=== PATIENT | female | born 1965 | race Hispanic/Latino ===

== ENCOUNTER 2018-04-07 12:51 | Outpatient (CLI) | payer OTHER | END 2018-04-07 12:52 | disposition home or self-care (01) | LOC: BICMAMMO 12:51 | PROVIDERS: ATTEND Family Medicine | DX: Z12.31 Encounter for screening mammogram for malignant neoplasm of breast (principal); Z80.3 Family history of malignant neoplasm of breast | CPT/HCPCS: 77063; 77067 ==

== ENCOUNTER 2018-05-15 14:49 | Emergency (ER) | payer OTHER ==
[2018-05-15] MEDS ORDERED: Ketorolac Tromethamine 30 MG/ML VIAL ONE (16:17)
--- NOTE | 2018-05-15 17:16 | RAD ---
PA AND LATERAL VIEWS CHEST: 05/15/18 HISTORY: Injury, chest pain, back pain. FINDINGS: The heart size is normal. The lungs are expanded without focal areas of consolidation, pneumothorax o r pleural effusions. Minimal degenerative changes are seen in the spine. IMPRESSION: No radiographic evidence of acute cardiopulmonary process. POS: [facility]
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
== END 2018-05-15 16:53 | disposition home or self-care (01) ==
LOC: ERS 14:49
DX: S16.1XXA Strain of muscle, fascia and tendon at neck level, initial encounter (principal); F17.210 Nicotine dependence, cigarettes, uncomplicated; V43.52XA Car driver injured in collision with other type car in traffic accident, initial encounter
CPT/HCPCS: 71046; 72040; 96372; J1885

== ENCOUNTER 2019-04-13 10:38 | Outpatient (CLI) | payer OTHER ==
--- NOTE | 2019-04-13 11:22 | MMO ---
Bilateral MAMMO Bilat Screen [facility]. CLINICAL HISTORY: Patient is 53 years old and is seen for screening. The patient has the following family history of breast cancer: sister, at age 55, malignant (generic). The patient has no personal history of cancer. VIEWS: The views performed were: bilateral craniocaudal with tomosynthesis and bilateral mediolateral oblique with tomosynthesis. FILMS COMPARED: The present examination has been compared to prior imaging studies performed at [facility] on 03/21/2008, 03/27/2009, 03/22/2014 and 04/07/2018. This study has been interpreted with the assistance of computer-aided detection. MAMMOGRAM FINDINGS: There are scattered fibroglandular densities. There are stable benign appearing calcifications seen in both breasts. There are no suspicious masses, calcifications or areas of architectural distortion. There are no suspicious masses, suspicious calcifications, or new areas of architectural distortion. IMPRESSION: THERE IS NO MAMMOGRAPHIC EVIDENCE OF MALIGNANCY. A ROUTINE FOLLOW-UP MAMMOGRAM IN 1 YEAR IS RECOMMENDED. THE RESULTS OF THIS EXAM WERE SENT TO THE PATIENT. ACR BI-RADS Category 2 - Benign finding MAMMOGRAPHY NOTE: 1. A negative mammogram report should not delay a biopsy if a dominant of clinically suspicious mass is present. 2. Approximately 10% to 15% of breast cancers are not detected by mammography. 3. Adenosis and dense breasts may obscure an underlying neoplasm. Reported by: JENNA TRAVIS MD Electonically Signed: [id number]
== END 2019-04-13 10:39 | disposition home or self-care (01) ==
LOC: BICMAMMO 10:38
PROVIDERS: ATTEND Family Medicine
DX: Z12.31 Encounter for screening mammogram for malignant neoplasm of breast (principal); Z80.3 Family history of malignant neoplasm of breast
CPT/HCPCS: 77063; 77067

== ENCOUNTER 2020-04-18 08:34 | Outpatient (CLI) | payer OTHER ==
--- NOTE | 2020-04-18 10:56 | MMO ---
Bilateral MAMMO Bilat Screen [facility]. CLINICAL HISTORY: Patient is 54 years old and is seen for screening. The patient has the following family history of breast cancer: paternal aunt, at age 55, malignant (generic) and cousin female, malignant (generic). The patient has no personal history of cancer. VIEWS: The views performed were: bilateral craniocaudal with tomosynthesis and bilateral mediolateral oblique with tomosynthesis. FILMS COMPARED: The present examination has been compared to prior imaging studies performed at [facility] on 03/27/2009, 03/22/2014, 04/07/2018 and 04/13/2019. This study has been interpreted with the assistance of computer-aided detection. MAMMOGRAM FINDINGS: There are scattered fibroglandular densities. There is a mass seen in the lower-inner region of the right breast. In the left breast, there are no suspicious masses, calcifications or areas of architectural distortion. IMPRESSION: MASS IN THE RIGHT BREAST REQUIRES ADDITIONAL EVALUATION. SPOT COMPRESSION IS RECOMMENDED. AN ULTRASOUND EXAM IS RECOMMENDED. ADDITIONAL IMAGING. THE RESULTS OF THIS EXAM WERE SENT TO THE PATIENT. ACR BI-RADS Category 0 - Incomplete: Need additional imaging evaluation. [facility] will notify the patient of the need for additional imaging services. MAMMOGRAPHY NOTE: 1. A negative mammogram report should not delay a biopsy if a dominant of clinically suspicious mass is present. 2. Approximately 10% to 15% of breast cancers are not detected by mammography. 3. Adenosis and dense breasts may obscure an underlying neoplasm. Reported by: DAISY JOE MD Electonically Signed: [id number]
--- NOTE | 2020-04-18 13:42 | RAD ---
THORACIC SPINE 3 VIEWS: Date: 04/18/2020 HISTORY: Mid back pain. FINDINGS: Vertebral bodies are normal in height. Degenerative osteophytic change is seen along the course of th e spine. Pedicles appear intact. IMPRESSION: Mild arthritic changes of the spine. POS: [facility]
== END 2020-04-18 08:35 | disposition home or self-care (01) ==
LOC: BICMAMMO 08:34
PROVIDERS: ATTEND Family Medicine
DX: Z12.31 Encounter for screening mammogram for malignant neoplasm of breast (principal); M54.9 Dorsalgia, unspecified; M47.814 Spondylosis without myelopathy or radiculopathy, thoracic region; N63.14 Unspecified lump in the right breast, lower inner quadrant; Z80.3 Family history of malignant neoplasm of breast
CPT/HCPCS: 72072; 77063; 77067

== ENCOUNTER 2020-04-25 12:59 | Outpatient (CLI) | payer OTHER ==
--- NOTE | 2020-04-25 14:08 | MMO ---
Right Breast MAMMO Unilat Diag [facility] RT+RIKY. CLINICAL HISTORY: Patient is 54 years old and is seen for additional evaluation requested from prior study. The patient has the following family history of breast cancer: paternal aunt, at age 55, malignant (generic) and cousin female, malignant (generic). The patient has no personal history of cancer. VIEWS: The views performed were: right craniocaudal spot compression with tomosynthesis; right mediolateral oblique spot compression with tomosynthesis; and right mediolateral with tomosynthesis. FILMS COMPARED: The present examination has been compared to prior imaging studies performed at [facility] on 04/07/2018, 04/13/2019, 04/18/2020 and 04/25/2020. This study has been interpreted with the assistance of computer-aided detection. MAMMOGRAM FINDINGS: There are scattered fibroglandular densities. There is an oval mass measuring 3 x 5 x 6 mm with circumscribed margins seen in the right breast at 3 o'clock. Complicated cyst or lymph node IMPRESSION: MASS IN THE RIGHT BREAST IS PROBABLY BENIGN. FOLLOW-UP IN 6 MONTHS IS RECOMMENDED. THE RESULTS OF THIS EXAM WERE SENT TO THE PATIENT. ACR BI-RADS Category 3 - Probably benign finding - short interval follow-up suggested. [facility] will notify the patient of the need for additional imaging services. MAMMOGRAPHY NOTE: 1. A negative mammogram report should not delay a biopsy if a dominant of clinically suspicious mass is present. 2. Approximately 10% to 15% of breast cancers are not detected by mammography. 3. Adenosis and dense breasts may obscure an underlying neoplasm. Reported by: KAYLYN GLASGOW MD Electonically Signed: [id number]
--- NOTE | 2020-04-25 14:13 | ULT ---
Exam: Right breast ultrasound Limited: HISTORY: Nodular density in the inner aspect right breast on mammogram for further assessment The right breast is evaluated with attention to the 3:00 position, 5 cm from the nipple which demonst rates a 0.3 x 0.5 x 0.5 cm diameter circumscribed hypoechoic mass with some minimal linear internal echoes. I favor this representing either a minimally complicated cyst or an intramammary lymph node. This has a slightly more dense appearance mammographically but has not increased in size dating back to 2018 IMPRESSION: BI-RADS Category 3 probably benign findings. Six-month followup unilateral diagnostic mammogram and r ight breast ultrasound is recommended for further assessment. Findings were discussed with the patient who is in agreement.
== END 2020-04-25 13:00 | disposition home or self-care (01) ==
LOC: BICMAMMO 12:59
PROVIDERS: ATTEND Family Medicine
DX: N63.12 Unspecified lump in the right breast, upper inner quadrant (principal)
CPT/HCPCS: G0279